=== PATIENT | male | born 1980 | race Caucasian/White ===

== ENCOUNTER 2019-08-22 09:41 | Outpatient (CLI) | payer OTHER, SELFPAY ==
--- NOTE | ~2019-08-22 | XR_ITS ---
EXAMINATION: XR lumbar spine 2-3V DATE: 08/22/2019 10:07 INDICATION: Low back pain with sciatica TECHNIQUE: Anteroposterior and lateral views of the lumbar spine, and cone-down lateral view of the l umbosacral junction were obtained. COMPARISON: None. FINDINGS: There is no fracture. There are 4 mm of retrolisthesis of L4 on L5. Bone alignment is other humphries normal. There is moderate loss of intervertebral disc space height at L4-5 and severe loss of in tervertebral disc space height at L5-S1. Moderate lower lumbar facet osteoarthritis. The bowel gas pa ttern is normal. IMPRESSION: 1. Moderate lower lumbar spondylosis. Reviewed, dictated and finalized at location A. [employer]
== END 2019-08-22 09:42 | disposition home or self-care (01) ==
PROVIDERS: PCP Family Medicine; Visit Provider Nurse Practitioner Family
DX: M54.42 Lumbago with sciatica, left side (principal); M47.816 Spondylosis without myelopathy or radiculopathy, lumbar region
CPT/HCPCS: 72100

== ENCOUNTER 2021-12-06 07:38 | Outpatient (CLI) | payer OTHER, SELFPAY ==
--- NOTE | 2021-12-10 14:44 | WPDHOMESLEEP ---
Sleep Study - Home Unattended Date of Study: 12/06/21 Ordering Provider: James Kirkland MD Interpreting Provider: Michaela Ramirez, DO Home Sleep Study Type: Watch PAT Height: 1.83 m Weight: 115.666 kg Body Mass Index: 34.5 Neck Circumference (inches): 17.25 Hanna: 13 Reason for Sleep Study Unrefreshing sleep, daytime hypersomnia. Previously diagnosed HAROON with CPAP use. Currently has mouthpiece. Sleep History The patient is a 40-year-old male with GERD and tobacco abuse that had a sleep study ordered by his primary care for evaluation of sleep apnea. 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 He occasionally awakens from sleep short of breath. He constantly awakens at night with heartburn, belching or cough. He constantly snores loud enough that others complain. He constantly has trouble sleeping when he has a cold. He occasionally wakes up gasping for air throughout the night. He rarely has breathing problems at night observed by himself or others. He occasionally sweats excessively at night. He occasionally has heart palpitations or irregular heartbeats during the night. He occasionally falls asleep during the day but never while driving. He denies sleep paralysis and cataplexy. He occasionally has trouble at school or work due to sleepiness. He frequently experiences vivid dreamlike scenes upon awakening or falling asleep. He rarely feels afraid of going to sleep. He constantly has nightmares. He constantly remembers his dreams. He constantly has thoughts racing through his mind. He rarely feels sad or depressed. He rarely has anxiety. He rarely has muscular tension. He occasionally notices parts of his body jerk. He rarely kicks during the night. He occasionally has crawling and aching feelings in his legs as well as leg pain during the night. He denies grinding his teeth during sleep awakening with morning jaw pain. He is rarely bothered by pain during the day and rarely awakened by pain during the night. He rarely wakes up feeling stiff in the morning. He rarely wakes up with sore or achy muscles. He rarely wakes up with pain in the neck, spine or other joints. He goes to bed at 8:00 p.m. on both weekdays and weekends. He can fall asleep immediately. He wakes up 2-3 times throughout the night for unknown reasons. He will toss and turn until he can fall back asleep which is usually under 10 minutes. He wakes up at 4:20 a.m. on weekdays and 6:00 a.m. on the weekends. He typically gets 5 hours of sleep night. He will stay in bed for 5 minutes after waking up in the morning. He currently lives with his and 10-year-old child. He does not consume any caffeinated beverages within 2 hours of bedtime. He does not engage in physical exercise before bedtime. He denies reading and watching television before falling asleep. He does not take naps in the afternoon or the evening. He smokes half a pack of cigarettes per day. He drinks 4-5 alcoholic beverages per day. He denies recreational drug use. [facility] Past Medical History Medical History BMI 33.0-33.9,adult Family History Family History Father No problems noted. Mother No problems noted. 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
[2021-12-10 15:09] VITALS: BMI 34.5
== END 2021-12-09 10:45 | disposition home or self-care (01) ==
LOC: ANHCSM 07:39
PROVIDERS: PCP Family Medicine; Visit Provider Family Medicine
DX: G47.9 Sleep disorder, unspecified (principal); R06.81 Apnea, not elsewhere classified
CPT/HCPCS: 95800

== ENCOUNTER → 2023-04-07 09:40 | Outpatient (CLI) | payer OTHER, SELFPAY ==
--- NOTE | ~2023-04-07 | XR_ITS ---
Left foot Technique: AP and lateral views were obtained. Clinical History: Pain Findings: No acute fracture or dislocation is seen. Osseous alignment is anatomic. Joint spaces are p reserved without erosive or degenerative change. Small plantar calcaneal spur noted. Soft tissues are unremarkable. Impression: Small plantar calcaneal spur. Reviewed, dictated and finalized at location . Impression: Small plantar calcaneal spur.
== END ==
PROVIDERS: PCP Physician Assistant Medical; Visit Provider Physician Assistant Medical
DX: M77.32 Calcaneal spur, left foot (principal)
CPT/HCPCS: 73620

== ENCOUNTER 2023-09-29 08:23 | Emergency (ER) | payer OTHER, SELFPAY ==
[2023-09-29 08:33] VITALS: BP 137/79; PULSE 76; RESP 16; TEMP 36.5; O2SAT 100
--- NOTE | 2023-09-29 08:33 | ED.GENADULT ---
HPI - General Adult General Chief complaint: Extremity Problem,Nontraumatic Stated complaint: Swelling and Pain in Right Hand Source: patient Mode of arrival: ambulatory Limitations: no limitations History of Present Illness HPI narrative: [age] year male presented for complaint of right wrist pain, swelling, and decreased range of motion. Onset last night. Denies injury or overuse. He states the wrist started feeling sore before bedtime, and he woke this morning with more pain, redness and swelling. Took ibuprofen today. Endorses more alcohol intake recently. Father with gout. Related Data Allergies Allergy/AdvReac Type Severity Reaction Status Date / Time No Known Allergies Allergy Verified 04/07/23 07:49 Review of Systems Review of Systems: CONSTITUTIONAL: Denies body aches, fever, chills CARDIOVASCULAR: Denies chest pain, palpitations, or edema. RESPIRATORY: Denies cough or dyspnea. GASTROINTESTINAL: Denies abdominal pain, nausea, vomiting, or diarrhea. SKIN: Denies rash, itching, wounds, cool extremities MUSCULOSKELETAL: Reports right wrist pain NEUROLOGIC: Denies headache, numbness, tingling, or weakness. All systems reviewed & are unremarkable except as noted in HPI and below PMFSH Past Medical History Medical History BMI 33.0-33.9,adult BMI 34.0-34.9,adult Family History Family History Father No problems noted. Mother No problems noted. 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 Please see nursing chart for further information. There is no relevant family history pertinent to the presenting complaint Exam Narrative: GENERAL: Well-appearing CHEST: Speaks in full sentences. No respiratory distress. HEART: Regular rate and rhythm. Normal and equal peripheral pulses. EXTREMITIES: Right wrist tender with light palpation to radial aspect associated with mild swelling and erythema. Decreased range of motion with flexion/extension/rotation of wrist and painful finger cascade, any finger movement endorses wrist pain. Right hand has normal sensation, No clubbing, cyanosis, ecchymosis, No open wounds, or obvious deformity; alignment normal, pulse palpable and equal bilaterally, skin warm, dry, pink. Capillary refill less than 3 seconds. SKIN: Warm, dry, no rash or wounds. NEURO: Alert and oriented x3. PSYCH: Normal mood and affect Extrem: Elbow/forearm/wrist images: 1. area of pain, swelling Course Course Emergency Course: Patient is aware of diagnosis, understands and agrees to treatment plan. Anticipatory guidance given. Patient agrees to follow-up as directed and is aware of reasons to seek care at the emergency department. Portions of this record may have been created with voice recognition software Level of Care: Express Care Visit Vital Signs Vital signs: Reviewed Medical Decision Making MDM Narrative Medical decision making narrative: Discussed physical exam findings most c/w with gout, Rx Medrol Pack as pt started with sx last night. Plan to f/u with pcp. Advised supportive measures and signs/symptoms to go to the ER. Pt is appropriate for outpt treatment and f/u. Differential Diagnosis Differential Diagnosis: sprain/strain of wrist, Colles' fracture, wrist fract
== END 2023-09-29 08:57 | disposition home or self-care (01) ==
PROVIDERS: Emergency Provider Nurse Practitioner Family; PCP Physician Assistant Medical
DX: M25.531 Pain in right wrist (principal); F17.290 Nicotine dependence, other tobacco product, uncomplicated
CPT/HCPCS: 99213; G0463